=== PATIENT | male | born 1980 | race Caucasian/White ===

== ENCOUNTER 2017-12-15 10:18 | Emergency (ER) | payer SELFPAY ==
[2017-12-15] MEDS ORDERED: predniSONE 10 MG Tab ONE (11:30)
--- NOTE | 2017-12-16 08:29 | ER ---
HISTORY OF PRESENT ILLNESS: The patient is a 37-year-old male who comes in today with a chief complaint of facial swelling. The patient notes it started a little bit yesterday, he had it last night. He took a Benadryl, and it seemed to get a little better. The Benadryl made him drowsy and he slept for 2 hours, but his swelling seemed to go down a little bit. He notes it came back up this morning. [place] he notes it is hard to get into the ER. He thinks an insect bit him, but he is not absolutely sure. He noted an area under his chin this morning which seemed a little swollen. He notes the left cheek has a small bump at the center of the swelling. He does not have any dental issues. He does not have wheezing. He does not have shortness of breath. He does not feel any throat or tongue swelling, just basically the cheek, lower chin. On physical exam, we noted an area on the back of his neck where he had a couple of bug bites with a little bit of swelling also. ALLERGIES: NKDA. CURRENT MEDICATIONS: None. PHYSICAL EXAMINATION: GENERAL: He is alert, oriented, in no apparent distress. VITAL SIGNS: He is afebrile. His vital signs are stable. HEENT: TMs are normal. Nares are clear. Throat is normal. He has no dental caries that are obvious. NECK: Supple. No nodes. He has no dental caries that are obvious. There is no tenderness. It is just sort of a diffuse swelling with possibly a punctate center on the cheek. It is not markedly erythematous, but the patient is also a little bit sunburned, so it is difficult to tell. LUNGS: Completely clear. HEART: Regular sinus rhythm. ABDOMEN: Benign. ASSESSMENT: Facial swelling. This is most likely due to insect bites, but I cannot tell him for certain. I have recommended he obtain some cetirizine or Zyrtec 10 mg p.o. daily, which will probably work as well as the Benadryl, but will last longer and be less likely to make him tired. He feels his swelling is at its maximum now. Just to make sure he does not worsen [place], we will have him hang out in town for an hour or two just to make sure it is not worsening, and he does not develop any respiratory symptoms. He can start the cetirizine now. We will also put him on 40 mg of prednisone for the next 3 days just to be on the safe side. If the patient develops worsening swelling or more importantly if he develops any wheezing and any lip, tongue, or throat swelling, we would have him return to clinic. MUSTAPHA /[id number]
== END 2017-12-15 10:45 | disposition home or self-care (01) ==
LOC: LB.ED 10:18
DX: R22.0 Localized swelling, mass and lump, head (principal)
CPT/HCPCS: 99283; A9270